=== PATIENT | male | born 1960 | race Two or more races ===

== ENCOUNTER → 2018-07-06 06:51 | Day surgery (SDC) | payer BC ==
--- NOTE | 2018-06-21 17:21 | HP ---
CC: Dr. Jeevan Storm * ADMISSION HISTORY AND PHYSICAL: DATE OF ADMISSION: 07/06/18 ATTENDING SURGEON: Tony Valdez MD * (DICTATED BY CAREY SOLANO) CHIEF COMPLAINT: Bilateral inguinal hernias. HISTORY OF PRESENT ILLNESS: This is a 58-year-old male with 1 to 1-1/2 year history of bilateral groin swelling, left greater than right. This has gradually increased over the past year, but for the most part has been minimally symptomatic (he occasionally manually reduces the left side when he is uncomfortable). He has had no symptoms to suggest incarceration or strangulation. He did have an event recently where he was prying a board and felt some pain both in his back and extending down into the left groin. This resolved spontaneously. He has not had any significant GI or symptoms. He was seen in the office by Dr. Valdez on 06/04/18, at which time exam confirmed the presence of bilateral inguinal hernias. Dr. Valdez has discussed with him the indications for surgery, the risks, benefits, and alternatives and he would like to proceed with scheduled laparoscopic repair of bilateral inguinal hernias with mesh. PAST MEDICAL HISTORY: Coronary artery disease (status post single stent placement at [facility] in June 2016). He was most recently seen by the financial management consultant (Dr. Wren) in January 2018. He has had no interval symptoms and continues to be fairly active. He was treated for anxiety and depression, hypothyroidism, GERD, allergic rhinitis, and hyperlipidemia. PAST SURGICAL HISTORY: Previous surgeries include single-vessel coronary angioplasty and stenting as noted above and wisdom tooth extraction. No reported surgical complications. CURRENT MEDICATIONS: 1. Zoloft 50 mg once daily. 2. Rosuvastatin 20 mg once daily. 3. Bisoprolol 5 mg once daily. 4. Levothyroxine 125 mcg once daily. 5. Aspirin 81 mg once daily. 6. Angi 180 mg once daily. 7. Omeprazole 40 mg once daily p.r.n. for GERD symptoms. 8. Flonase 2 sprays each nostril once daily p.r.n. allergies. 9. Clonazepam 0.5 mg once daily p.r.n. anxiety (he will often just use one- half tablet). DRUG ALLERGIES: None known. FAMILY HISTORY: Positive for heart disease and negative for anesthesia problems , bleeding or clotting disorders. SOCIAL HISTORY: The patient is . He is a retired teacher. He remains fairly active physically. He denies use of tobacco and drinks on average 1 drink per day. He denies other recreational drug use. REVIEW OF SYSTEMS: General: No recent constitutional symptoms or acute illnesses other than described in the HPI. HEENT: No problems reported. Cardiovascular: As above. No additions. He is not treated for hypertension. Respiratory: No shortness of breath, chronic cough. GI: No recent exacerbations of GERD. No lower GI symptoms. Colonoscopy done at age 53 with no polyps and recommended followup in 10 years. No interval symptoms of concern. : No problems reported. He does have nocturia x1, but no changes. Endocrine: No diabetes. He is on thyroid replacement maintenance. Psych: No additions to above. PHYSICAL EXAMINATION GENERAL: Well nourished, well developed, in no acute distress. VITAL SIGNS: Height 69 inches, weight 180 pounds, blood pressure 110/76, pulse 60, respirations 16. HEENT: Pupils are equal and round, reactive. EOMs intact. No conjunctival pallor. Oropharynx: Teeth in good repair. No intraoral lesions. NECK: No lymphadenopathy, thyromegaly, or masses. LUNGS: Clear to auscultation. No rales or wheezes. HEART: Regular rate and rhythm. No murmur noted. ABDOMEN: Soft, nontender to palpation. No palpable masses or organomegaly with the exception of bilateral groin bulges, left greater than right when the patient is examined in the standing position. GENITALIA: Testes normal. On exam, he has a positive cough impulse bilaterally in the direct space, left greater than right. RECTAL: Not done. BACK: No spinous process or CVA tenderness. EXTREMITIES: No edema. NEUROLOGICAL: Grossly intact. SKIN: Warm and dry. No suspicious rashes or lesions. IMPRESSION: Bilateral inguinal hernias. PLAN: Laparoscopic repair of bilateral inguinal hernias with mesh. CAREY SOLANO [id number]/[facility] #: [id number] [facility] MEDICAL CENTERBob
[~2018-07-06 06:51] MED LIST: Buffered Lidocaine 1% SYRIN* 1 ML/SYRINGE INTRADERM ONE; Bupivacaine 0.25% EPI 200,000* 30 ML SDV ONE; Dexamethasone IV* 4 MG/ML 1 ML (4 MG) IV SLOW PU ONE; Dexamethasone IV* 4 MG/ML 1 ML (4 MG) ONE; DiMENhydriNATE IV* 50 MG/ML VIAL IV PUSH PRN; EPHEDrine (Pressors)* 50 MG/ML VIAL ONE; Famotidine IV* 10 MG/ML 2 ML (20 mg) IV ONE; Famotidine IV* 10 MG/ML 2 ML (20 mg) ONE; Glycopyrrolate IV* 0.2 MG/ML 1 ML VIAL ONE; HYDROcodone/ACETAMIN 5-325 MG* 1 TAB PO PRN; Ketorolac INJ* 30 MG/ML 1 ML VIAL ONE; Lactated Ringers 1000 ML Bag* 1,000 ML IV SCH; Lidocaine 2% PF * 5 ML VIAL ONE; Midazolam* 1 MG/ML 5 ML VIAL (5 MG) ONE; Naloxone* 0.4 MG/ML 1 ML VIAL IV PRN; Ondansetron INJ* 2 MG/ML VIAL ONE; PROCHLORPERAZINE INJ 5 MG/ML 2 ML VIAL ONE; Phenylephrine 40 MCG/ML SYRINGE ONE; Propofol* 10 MG/ML 20 ML BTL ONE; Rocuronium* 10 MG/ML VIAL ONE; Scopolamine 1.5 mg* PATCH TRANSDERM PRN; Scopolamine PATCH Remove* 1 NOTE MISC PATCH OFF ONE; Sugammadex * 200 MG/2 ML VIAL IV PUSH ONE; ceFAZolin 2 GM in NS PREMIX(*) 2 GM/100 ML BAG IVPB ONE; fentaNYL* 50 MCG/ML 2 ML VIAL (100 MCG VIAL) IV PRN; fentaNYL* 50 MCG/ML 2 ML VIAL (100 MCG VIAL) ONE; oxyCODONE/Acetamin 5/325 MG* TAB PO PRN
[2018-07-06 11:13] VITALS: BP 116/60
--- NOTE | 2018-07-07 02:04 | OP ---
CC: Jeevan Storm MD * DATE OF OPERATION: 07/06/18 - SDS DATE OF : 56 SURGEON: Tony Valdez MD. LICENSED AND CERTIFIED MIDWIFE: CAREY Membreno student. ANESTHESIOLOGIST: Dr. Manzanares. ANESTHESIA: General endotracheal. PRE-OP DIAGNOSIS: Bilateral inguinal hernias. POST-OP DIAGNOSIS: Bilateral inguinal hernias. OPERATIVE PROCEDURE: Laparoscopic preperitoneal repair of bilateral inguinal hernias with mesh. ESTIMATED BLOOD LOSS: Minimal. IV FLUIDS: Crystalloid. SPECIMEN: None. DRAINS: None. COMPLICATIONS: None. COUNTS: Instrument, needle, and sponge counts correct. DESCRIPTION OF PROCEDURE: The patient was brought to the operating room and placed on the table supine. Sequential compression devices were placed on both lower extremities. General anesthesia was administered. A [place] catheter was placed. He was positioned and padded appropriately. The abdomen was prepped and draped in the usual sterile fashion and he received appropriate intravenous antibiotics. A time-out was performed. Local anesthetic was infiltrated into the skin and soft tissue prior to making each incision. A curvilinear infraumbilical incision was created and subcutaneous tissues were divided with blunt dissection and cautery. The anterior rectus fascia was identified to the left of midline and this was incised transversely and the underlying rectus abdominis muscle fibers were retracted laterally. A preperitoneal balloon dissector was positioned down to the pubic symphysis and then insufflated under direct visualization. The balloon dissector was removed and replaced with a 12-mm blunt port, and then carbon dioxide was insufflated to a pressure of 12 mmHg. Under direct visualization, two 5-mm trocars were placed in the lower midline between the bellies of the rectus muscle. Dissection proceeded on the right side from the midline laterally identifying the pubic symphysis and tubercle and a large direct inguinal hernia. Inferior epigastric vessels were maintained anteriorly and the dissection proceeded out laterally to the anterior superior iliac spine. There was a small rent in the peritoneum that was controlled with endoscopic clip placement. Next, dissection proceeded on the left side and a similar finding of a direct inguinal hernia, and again vessels were preserved anteriorly. Dissection proceeded out laterally to the anterior superior iliac spine, and again there was a small rent in the peritoneum controlled with endoscopic clip placement. Repair was then performed with the Bard 3DMax mesh using a large-size mesh patch to repair the left-sided hernia defect. This large piece of mesh actually passed the midline to the right side and partially covered the right-sided hernia defect as well. The mesh was positioned so as it would cover the direct , indirect, and femoral spaces on the left side. On the right side, it was decided to repair this with the Bard 3DMax medium-size patch and this was positioned to the midline and secured along with the right-sided mesh to the pubic bone with 2 tacks using the CapSure tacker. The mesh covered the direct and indirect as well as femoral spaces on the right side adequately. At this point, the preperitoneal space was allowed to desufflate and the 12-mm port was repositioned into the peritoneal cavity to allow peritoneoscopy to be performed. Inspection on either side revealed that there was good coverage of the hernia defects with mesh and there was no violation of the peritoneum. Carbon dioxide was released and the ports were all removed. The umbilical site was closed in two layers with 0 Vicryl used to approximate the posterior and anterior rectus fascia using interrupted suture. The skin incisions were all closed using 4-0 Monocryl. Steri-Strips and dressings were applied. The patient tolerated the procedure well, was extubated and transferred uneventfully to Recovery. [id number]/[facility] #: [id number]
== END | disposition home or self-care (01) ==
LOC: OR 06:51
PROVIDERS: ATTEND Surgery
DX: K40.20 Bilateral inguinal hernia, without obstruction or gangrene, not specified as recurrent (principal); I25.10 Atherosclerotic heart disease of native coronary artery without angina pectoris; F41.9 Anxiety disorder, unspecified; F32.9 Major depressive disorder, single episode, unspecified; E03.9 Hypothyroidism, unspecified; K21.9 Gastro-esophageal reflux disease without esophagitis; J30.9 Allergic rhinitis, unspecified; E78.5 Hyperlipidemia, unspecified; Z79.82 Long term (current) use of aspirin
CPT/HCPCS: C1781; J0690; J0780; J1100; J1885; J2250; J2405; J2704; J3010